=== PATIENT | male | born 1960 | race Caucasian/White ===

== ENCOUNTER 2023-04-25 13:15 | Emergency (ER) | payer MEDICAID, SELFPAY ==
[2023-04-25 13:23] VITALS: BP 173/101; PULSE 80; RESP 18; TEMP 36.1; O2SAT 95; BMI 37.2
--- NOTE | 2023-04-25 13:46 | CRLHL7_ITS ---
For Patients: As a result of the Century Cures Act, medical imaging exams and procedure reports are released immediately into your electronic medical record. You may view this report before your referring provider. If you have questions, please contact your health care provider. INDICATION: Fall. Pain. TECHNIQUE: Multidetector imaging of the pelvis with axial reformats axial coronal and sagittal left hip formats. FINDINGS: Moderately severe osteoarthritis with near [id number] narrowing superiorly. Subchondral sclerosis and cysts of the superior acetabulum with small marginal osteophytes. Shallow subchondral sclerosis and osteophytes of the femoral head. Synovial herniation pit lucency at the anterior superior femoral head neck offset. No femoral fracture. No joint effusion. No visualized periarticular fluid collection. Hamstring appears intact. Similar osteoarthritis of the right hip on large field imaging. Mild osteoarthritis of sacroiliac joints. Small amount of vacuum air in each SI joint. Mild scattered diffuse atherosclerotic vascular calcifications. IMPRESSION: No acute traumatic finding. Moderate osteoarthritis of the left hip. Please note that all CT scans at this facility use dose modulation, iterative reconstruction, and/or weight-based dosing when appropriate to reduce radiation dose to as low as reasonably achievable. Dictated by Tani Galvan MD @ 04/25/2023 2:40:31 PM (Electronically Signed)
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
[2023-04-25] MEDS: KETOROLAC 30 MG/ML inj IM (14:15)
[2023-04-25] MEDS: OXYCODONE 1 MG/ML ORAL SOLN 5 MG PO (14:48)
[2023-04-25] MEDS: OXYCODONE 5 MG TABLET PO (15:23)
== END 2023-04-25 15:58 | disposition home or self-care (01) ==
PROVIDERS: Emergency Provider Student in an Organized Health Care Education/Training Program
DX: G57.02 Lesion of sciatic nerve, left lower limb (principal)
CPT/HCPCS: 73700; 96372; 99282; 99284; A9270; J1885